=== PATIENT | male | born 1960 | race African-American/Black ===

== ENCOUNTER 2016-11-02 16:25 | Emergency (ER) | payer MEDICAID ==
[~2016-11-02] VITALS: Ht 188 cm; Wt 122.0 kg
[~2016-11-02 16:25] MED LIST: ALLO100T30 PO; INDO50CA PO; METF500T4 PO; TRAM50TA2 PO
[2016-11-02] MEDS ORDERED: SODIUM CHLORIDE FLUSH 10ML SYR IVF ONE (17:00)
[2016-11-02] MEDS ORDERED: BUPR150T73 PO (17:17)
[2016-11-02] MEDS ORDERED: ALLO300T PO (17:17)
[2016-11-02 17:29] LABS: ASPARTATE AMINO TRANSFERASE 41 U/L (15-37); BLOOD UREA NITROGEN 18 mg/dL (7-18)
[2016-11-02 20:04] VITALS: BP 122/86
== END 2016-11-02 20:07 | disposition home or self-care (01) ==
LOC: ED 20:00
DX: R42 Dizziness and giddiness (principal); M54.5 Low back pain; G89.29 Other chronic pain; M10.9 Gout, unspecified; Z98.890 Other specified postprocedural states
CPT/HCPCS: 36415; 70450; 71010; 80053; 81001; 85025; 87086; 93005

== ENCOUNTER 2016-12-21 00:20 | Emergency (ER) | payer MEDICAID ==
[~2016-12-21 00:20] MED LIST changes: +ALLO300T PO; +BUPR150T73 PO
[2016-12-21] MEDS ORDERED: HYDROcodone/APAP 5/325 TABLET ONE (01:41)
== END 2016-12-21 10:12 | disposition home or self-care (01) ==
LOC: ED 01:50
DX: M10.00 Idiopathic gout, unspecified site (principal); M13.0 Polyarthritis, unspecified; M79.641 Pain in right hand; E11.9 Type 2 diabetes mellitus without complications
CPT/HCPCS: 99283

== ENCOUNTER 2016-12-30 09:29 | Emergency (ER) | payer MEDICAID ==
[~2016-12-30] VITALS: Ht 188 cm; Wt 122.6 kg
[2016-12-30 09:38] VITALS: BP 134/84
[2016-12-30] MEDS ORDERED: OXYcodone/APAP 5/325MG TABLET ONE (10:26)
[2016-12-30] MEDS ORDERED: METHOCARBAMOL 750 MG TABLET ONE (10:27)
[2016-12-30] MEDS ORDERED: METHOCARBAMOL 750 MG TABLET PO ONE (10:30)
[2016-12-30] MEDS ORDERED: OXYcodone/APAP 5/325MG TABLET PO ONE (10:30)
== END 2016-12-30 10:47 | disposition home or self-care (01) ==
LOC: ED 10:15
DX: M54.42 Lumbago with sciatica, left side (principal); G89.29 Other chronic pain; M54.5 Low back pain
CPT/HCPCS: 99284; J7512

== ENCOUNTER 2017-02-12 16:56 | Emergency (ER) | payer MEDICAID ==
[~2017-02-12] VITALS: Ht 190.5 cm; Wt 125.0 kg
[2017-02-12 16:57] VITALS: BP 123/77
[2017-02-12 17:34] LABS: HEMATOCRIT 46.2 % (39.2-51.8); HEMOGLOBIN 15.2 g/dL (13.7-18.0); WHITE BLOOD COUNT 15.6 x10^3/uL (3.4-10)
[2017-02-12 17:46] LABS: BLOOD UREA NITROGEN 19 mg/dL (7-18)
[2017-02-12 17:56] LABS: ASPARTATE AMINO TRANSFERASE 45 U/L (15-37)
[2017-02-12] MEDS ORDERED: MAALOX/HYOSCYAMINE/LIDOCAINE 45 ML BTL PO ONE (19:00)
[2017-02-12] MEDS ORDERED: MAALOX/HYOSCYAMINE/LIDOCAINE 45 ML BTL ONE (19:10)
== END 2017-02-12 19:53 | disposition home or self-care (01) ==
LOC: ED 19:47
DX: K29.00 Acute gastritis without bleeding (principal); E11.9 Type 2 diabetes mellitus without complications; K21.9 Gastro-esophageal reflux disease without esophagitis
CPT/HCPCS: 36415; 74022; 76700; 80053; 81003; 83690; 84484; 85025; 93005; 99285

== ENCOUNTER 2017-05-27 09:06 | Emergency (ER) | payer MEDICAID ==
[~2017-05-27] VITALS: Ht 188 cm; Wt 127.0 kg
[2017-05-27 09:07] VITALS: BP 143/94
== END 2017-05-27 10:14 | disposition home or self-care (01) ==
LOC: ED 09:29
DX: J20.9 Acute bronchitis, unspecified (principal); E11.9 Type 2 diabetes mellitus without complications; Z59.0 Homelessness
CPT/HCPCS: 71020; 99284

== ENCOUNTER 2017-08-02 14:14 | Emergency (ER) | payer MEDICAID ==
[~2017-08-02] VITALS: Ht 188 cm; Wt 120.1 kg
[2017-08-02 14:16] VITALS: BP 117/79
[2017-08-02] MEDS ORDERED: HYDROcodone/APAP 5/325 TABLET ONE (15:13)
[2017-08-02] MEDS ORDERED: HYDROcodone/APAP 5/325 TABLET PO PRN (15:30)
== END 2017-08-02 15:45 | disposition home or self-care (01) ==
LOC: ED 15:30
DX: M65.262 Calcific tendinitis, left lower leg (principal); E11.9 Type 2 diabetes mellitus without complications
CPT/HCPCS: 99284

== ENCOUNTER 2017-10-31 16:58 | Emergency (ER) | payer MEDICAID ==
[~2017-10-31] VITALS: Ht 190.5 cm; Wt 119.9 kg
[2017-10-31 17:00] VITALS: BP 135/87
[2017-10-31] MEDS ORDERED: DIAZEPAM 5 MG TABLET ONE (17:40)
[2017-10-31] MEDS ORDERED: KETOROLAC 30 MG/1 ML ONE (17:40)
[2017-10-31] MEDS ORDERED: DIAZEPAM 5 MG TABLET PO ONE (18:00)
[2017-10-31] MEDS ORDERED: KETOROLAC 30 MG/1 ML IM ONE (18:00)
== END 2017-10-31 18:33 | disposition home or self-care (01) ==
LOC: ED 18:27
DX: M47.892 Other spondylosis, cervical region (principal); M54.5 Low back pain; M62.838 Other muscle spasm; E11.9 Type 2 diabetes mellitus without complications
CPT/HCPCS: 72050; 96372; 99284; J1885

== ENCOUNTER 2018-01-07 00:55 | Emergency (ER) | payer MEDICAID ==
[~2018-01-07] VITALS: Ht 188 cm; Wt 100.0 kg
[~2018-01-07 00:55] MED LIST changes: +HYDR-3237 PO; -METF500T4 PO; +METF500T5 PO; +TIZA4CAP PO
[2018-01-07 01:01] VITALS: BP 148/88
[2018-01-07] MEDS ORDERED: OXYcodone/APAP 10/325MG TABLET ONE (01:18)
[2018-01-07] MEDS ORDERED: DIAZEPAM 5 MG TABLET ONE (01:18)
[2018-01-07] MEDS ORDERED: KETOROLAC 30 MG/1 ML ONE (01:18)
[2018-01-07] MEDS ORDERED: KETOROLAC 30 MG/1 ML IM ONE (01:30)
[2018-01-07] MEDS ORDERED: OXYcodone/APAP 10/325MG TABLET PO ONE (01:30)
[2018-01-07] MEDS ORDERED: BUPIVACAINE/PF 0.5% INFIL ONE (01:30)
[2018-01-07] MEDS ORDERED: DIAZEPAM 5 MG TABLET PO ONE (01:30)
[2018-01-07] MEDS ORDERED: TRIAMCINOLONE ACETONIDE 40 MG/ML, 1ML IM ONE (01:30)
== END 2018-01-07 02:23 | disposition home or self-care (01) ==
LOC: ED 01:10
DX: S16.1XXA Strain of muscle, fascia and tendon at neck level, initial encounter (principal); M62.830 Muscle spasm of back; G89.29 Other chronic pain; M54.5 Low back pain; E11.9 Type 2 diabetes mellitus without complications; X58.XXXA Exposure to other specified factors, initial encounter; Y93.89 Activity, other specified; Y99.8 Other external cause status; Y92.89 Other specified places as the place of occurrence of the external cause
CPT/HCPCS: 20553; 96372; 99284; J1885

== ENCOUNTER 2019-06-13 09:52 | Emergency (ER) | payer MEDICAID ==
[~2019-06-13] VITALS: Ht 188 cm; Wt 124.6 kg
[~2019-06-13 09:52] MED LIST changes: -INDO50CA PO; +INDO50CA15 PO; +METF500T17 PO; -METF500T5 PO
--- NOTE | 2019-06-13 11:17 | NUR ---
pt sleeping in gurney, on monitor, equal chest rise and fall. awaiting lab and rad results
[2019-06-13 12:18] VITALS: BP 113/85
--- NOTE | 2019-06-13 12:19 | NUR ---
MD AT BEDSIDE TO UPDATE PT, PT TO BE DISCHARGED WITH RX. PT RESTING IN [facility], CALL LIGHT WITHIN REACH. AWAITING DC PAPERWORK.
== END 2019-06-13 12:37 | disposition home or self-care (01) ==
LOC: ED 12:00
DX: J06.9 Acute upper respiratory infection, unspecified (principal); J98.01 Acute bronchospasm
CPT/HCPCS: 71046; 87081; 87880; 93005; 99284

== ENCOUNTER 2020-01-24 17:25 | Emergency (ER) | payer MEDICAID ==
[~2020-01-24] VITALS: Ht 188 cm; Wt 121.3 kg
[2020-01-24 17:31] VITALS: BP 109/80
--- NOTE | 2020-01-24 18:29 | NUR ---
PT STATES "I FEEL EXACTLY THE SAME THAT I DO EVERYTIME THIS HAPPENS. I TRIED TO GET INTO MY DOCTOR'S TODAY SO I COULD GET A NEW INHALER, BUT SHE COULDN'T SEE ME. SHE TOLD ME TO COME TO THE ER." PT HAS HISTORY OF BRONCHITIS. REFERRING TO A [facility] INHALER. DENIES ANY FURTHER NEEDS OR CONCERNS, NAD NOTED. CALL LIGHT IN REACH.
[2020-01-24] MEDS ORDERED: ALBUTEROL/IPRATROPIUM 2.5MG/0.5MG, 3 ML ONE (18:41)
[2020-01-24] MEDS ORDERED: ALBUTEROL/IPRATROPIUM 2.5MG/0.5MG, 3 ML NPPB ONE (19:00)
[2020-01-24] MEDS ORDERED: ALBUTEROL HFA 90 MCG/SPRAY INH PRN (20:00)
== END 2020-01-24 20:34 | disposition home or self-care (01) ==
LOC: ED 20:25
DX: J20.9 Acute bronchitis, unspecified (principal); E11.9 Type 2 diabetes mellitus without complications; M10.9 Gout, unspecified; Z96.649 Presence of unspecified artificial hip joint
CPT/HCPCS: 71045; 93005; 94640; 99283

== ENCOUNTER 2020-03-31 21:37 | Emergency (ER) | payer MEDICAID ==
[2020-03-31 21:41] VITALS: BP 124/80
--- NOTE | 2020-03-31 21:44 | NUR ---
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 Visual, denies auditory. Denies SI/HI.
--- NOTE | 2020-03-31 22:17 | NUR ---
PA notified that pt is refusing UDS.
--- NOTE | 2020-03-31 22:48 | NUR ---
Pt up for discharge. Pt is having a coworker pick him up. Pt not driving home. Pt stable. Ambulatory at discharge. Pt not actively hallucinating at discharge.
== END 2020-03-31 22:50 | disposition home or self-care (01) ==
LOC: ED 22:07
DX: F15.151 Other stimulant abuse with stimulant-induced psychotic disorder with hallucinations (principal); M10.9 Gout, unspecified; E11.9 Type 2 diabetes mellitus without complications; Z96.649 Presence of unspecified artificial hip joint
CPT/HCPCS: 99283

== ENCOUNTER 2020-08-05 01:08 | Emergency (ER) | payer MEDICAID ==
[~2020-08-05] VITALS: Ht 190.5 cm; Wt 121.5 kg
--- NOTE | 2020-08-05 01:44 | NUR ---
TASK RN: FIRST CONTACT WITH PT. PT LAYING IN [facility], SPEAKING W ERP. PT VISIBLY ANXIOUS. PT REPORTS "DRIPPING BLOOD" RECTALLY X 3 WEEKS. DENIES ABD PAIN, DIARRHEA, CONSTIPATION, NAUSEA/VOMITING, FEVER. BP/SPO2 MONITORING IN PLACE.
[2020-08-05] MEDS ORDERED: SODIUM CHLORIDE FLUSH 10ML SYR IVF ONE (02:00)
[2020-08-05] MEDS ORDERED: LORazepam 2 MG/ML, 1ML IVPush ONE (02:00)
[2020-08-05 02:07] LABS: BASOPHILS % (AUTO) 1 % (0-1); EOSINOPHILS % (AUTO) 0 % (1-7); LYMPHOCYTES % (AUTO) 30 % (22-44); MEAN CORPUSCULAR HEMOGLOBIN 29.1 pg (27.5-34.5); MEAN CORPUSCULAR HGB CONC 33.9 g/dL (33.2-36.2); MEAN PLATELET VOLUME 8.9 fL (7.4-10.4); MONOCYTES % (AUTO) 9 % (2-9); NEUTROPHILS % (AUTO) 60 % (42-75); PLATELET COUNT 262 x10^3/uL (130-400); RED BLOOD COUNT 4.99 x10^6/uL (4.38-5.82); RED CELL DISTRIBUTION WIDTH 15.4 % (9.4-14.8)
[2020-08-05 02:08] LABS: MD NO
[2020-08-05 02:19] LABS: ANION GAP 6 mmol/L (5-15); CALCIUM 8.9 mg/dL (8.5-10.1); CHLORIDE 104 mmol/L (98-107); CREATININE 1.71 mg/dL (0.7-1.3)
[2020-08-05 02:20] LABS: ALANINE AMINOTRANSFERASE 40 U/L (12-78)
[2020-08-05 02:21] LABS: ALKALINE PHOSPHATASE 63 U/L (45-117); BILIRUBIN,TOTAL 0.2 mg/dL (0.2-1.0); TOTAL PROTEIN 9.5 g/dL (6.4-8.2)
[2020-08-05] MEDS ORDERED: LORazepam 2 MG/ML, 1ML ONE (02:41)
--- NOTE | 2020-08-05 03:19 | NUR ---
PT TO CT
[2020-08-05] MEDS ORDERED: OMNIPAQUE 350 MG/ML, 100ML BOTTLE ONE (03:26)
[2020-08-05 04:46] VITALS: BP 108/80
== END 2020-08-05 05:07 | disposition home or self-care (01) ==
LOC: ED 01:53
DX: K62.5 Hemorrhage of anus and rectum (principal); E11.22 Type 2 diabetes mellitus with diabetic chronic kidney disease; N18.2 Chronic kidney disease, stage 2 (mild)
CPT/HCPCS: 36415; 74177; 80053; 85025; 96374; 99285; J2060; Q9967

== ENCOUNTER 2020-08-15 20:37 | Emergency (ER) | payer MEDICAID ==
[2020-08-15] MEDS ORDERED: ACETAMINOPHEN 500 MG TABLET PO ONE (21:00)
[2020-08-15] MEDS ORDERED: KETOROLAC 30 MG/1 ML IM ONE (21:00)
[2020-08-15] MEDS ORDERED: ACETAMINOPHEN 500 MG TABLET ONE (21:08)
[2020-08-15] MEDS ORDERED: KETOROLAC 30 MG/1 ML ONE (21:08)
[2020-08-15 21:21] LABS: MICROSCOPIC AUTO
[2020-08-15 21:21] LABS: BASOPHILS % (AUTO) 0 % (0-1); EOSINOPHILS % (AUTO) 1 % (1-7); LYMPHOCYTES % (AUTO) 32 % (22-44); MEAN CORPUSCULAR HEMOGLOBIN 28.6 pg (27.5-34.5); MEAN CORPUSCULAR HGB CONC 33.1 g/dL (33.2-36.2); MEAN PLATELET VOLUME 9.2 fL (7.4-10.4); MONOCYTES % (AUTO) 15 % (2-9); NEUTROPHILS % (AUTO) 52 % (42-75); PLATELET COUNT 216 x10^3/uL (130-400); RED BLOOD COUNT 4.82 x10^6/uL (4.38-5.82); RED CELL DISTRIBUTION WIDTH 15.8 % (9.4-14.8)
[2020-08-15 21:25] LABS: MD NO
[2020-08-15 21:32] LABS: ALANINE AMINOTRANSFERASE 36 U/L (12-78); ALBUMIN 3.9 g/dL (3.4-5.0); ANION GAP 9 mmol/L (5-15); CALCIUM 8.4 mg/dL (8.5-10.1); CHLORIDE 104 mmol/L (98-107); CREATININE 1.36 mg/dL (0.7-1.3)
[2020-08-15 21:35] LABS: ALKALINE PHOSPHATASE 56 U/L (45-117); BILIRUBIN,TOTAL 0.3 mg/dL (0.2-1.0); TOTAL PROTEIN 8.6 g/dL (6.4-8.2)
--- NOTE | 2020-08-15 22:42 | NUR ---
Myriam flores in ED - 08/15/20 at 2243 by PRUDENCE pt wounds cleaned, ankle and knee yvon wrapped and pt provided crutches. pt verbalizes understanding and agreement with plan of care, verbalizes readiness to dc
[2020-08-15 23:01] VITALS: BP 130/87
== END 2020-08-15 23:04 | disposition home or self-care (01) ==
LOC: ED 22:39
DX: S39.012A Strain of muscle, fascia and tendon of lower back, initial encounter (principal); R10.9 Unspecified abdominal pain; E11.9 Type 2 diabetes mellitus without complications; X58.XXXA Exposure to other specified factors, initial encounter; Y93.89 Activity, other specified; Y92.89 Other specified places as the place of occurrence of the external cause; Y99.8 Other external cause status
CPT/HCPCS: 36415; 76770; 80053; 81001; 83690; 85025; 87086; 96372; 99284; J1885

== ENCOUNTER 2020-12-23 07:45 | Emergency (ER) | payer MEDICAID ==
[~2020-12-23] VITALS: Ht 188 cm; Wt 123.9 kg
--- NOTE | 2020-12-23 08:05 | NUR ---
PT AMBULATORY TO ROOM FROM TRIAGE, PT CHANGED INTO GOWN, MONITORS IN PLACE. SPO2 94% ON RA. PT STATES VOMITING FOR THE LAST 2 DAYS, AND STATED HIS STOOL YESTERDAY WAS BLACK
--- NOTE | 2020-12-23 08:25 | NUR ---
PT TO RADIOLOGY
--- NOTE | 2020-12-23 08:55 | NUR ---
PT RESTING ON ESTELLE STAUFFER/VSS. CALL LIGHT WITHIN REACH
[2020-12-23 10:16] VITALS: BP 141/84
--- NOTE | 2020-12-23 10:17 | NUR ---
PT SLEEPING ON GURNEY, RESPIRATIONS EVEN AND UNLABORED. NADN/VSS. CALL LIGHT WITHIN REACH
--- NOTE | 2020-12-23 11:01 | NUR ---
Patient given discharge instructions and rx, they have confirmed that they understand the instructions. Patient ambulatory with steady gait.
== END 2020-12-23 11:02 | disposition home or self-care (01) ==
LOC: ED 08:48
DX: J41.1 Mucopurulent chronic bronchitis (principal); R94.31 Abnormal electrocardiogram [ECG] [EKG]; E11.9 Type 2 diabetes mellitus without complications
CPT/HCPCS: 71046; 93005; 99283

== ENCOUNTER 2021-03-06 11:43 | Emergency (ER) | payer MEDICAID ==
[~2021-03-06] VITALS: Ht 188 cm; Wt 119.5 kg
--- NOTE | 2021-03-06 14:05 | NUR ---
bacteriologist soil note: Pt to room from lobby.
[2021-03-06] MEDS ORDERED: KETOROLAC 30 MG/1 ML ONE (14:27)
[2021-03-06] MEDS ORDERED: OXYcodone/APAP 5/325MG TABLET ONE (14:27)
[2021-03-06] MEDS ORDERED: OXYcodone/APAP 10/325MG TABLET PO ONE (14:30)
[2021-03-06] MEDS ORDERED: OXYcodone/APAP 10/325MG TABLET ONE (14:30)
[2021-03-06] MEDS ORDERED: KETOROLAC 30 MG/1 ML IM ONE (14:30)
[2021-03-06 14:46] VITALS: BP 122/92
--- NOTE | 2021-03-06 14:54 | NUR ---
PT MEDICATED PER EMAR FOR PAIN. POC IS DC. PT W DIFFICULTY AMBULATING SECONDARY TO BILAT KNEE INVOLVEMENT OF GOUT FLARE. PT PROVIDED WALKER FOR AMBULATION. DC PENDING AMBULATION
--- NOTE | 2021-03-06 15:09 | NUR ---
PT REFUSING WALKER AT DISCHARGE. [facility] WITH RN. FRIEND TO TRANSPORT PT HOME FROM [facility]
== END 2021-03-06 15:11 | disposition home or self-care (01) ==
LOC: ED 15:00
DX: M1A.0410 Idiopathic chronic gout, right hand, without tophus (tophi) (principal); M1A.0620 Idiopathic chronic gout, left knee, without tophus (tophi); M1A.0610 Idiopathic chronic gout, right knee, without tophus (tophi); E11.9 Type 2 diabetes mellitus without complications
CPT/HCPCS: 96372; 99283; J1885